=== PATIENT | female | born 1965 | race Caucasian/White ===

== ENCOUNTER 2021-03-15 08:34 | Outpatient (RCR) | payer BC | END 2021-03-21 | disposition home or self-care (01) | PROVIDERS: ATTEND Internal Medicine | DX: M41.9 Scoliosis, unspecified (principal) ==

== ENCOUNTER 2022-07-18 05:35 | Outpatient (CLI) | payer BC ==
[~2022-07-18] VITALS: Ht 157.5 cm; Wt 76.2 kg
[2022-07-20] MEDS ORDERED: MULT-593 PO (12:18)
[2022-07-20] MEDS ORDERED: VITA1TAB78 PO (12:18)
[2022-07-20] MEDS ORDERED: OMEG100032 PO (12:18)
[2022-07-20] MEDS ORDERED: ZINC50TA11 PO (12:18)
== END 2022-07-20 12:19 | disposition home or self-care (01) ==
LOC: PREOP 05:35
PROVIDERS: ATTEND Internal Medicine
DX: Z01.818 Encounter for other preprocedural examination (principal)

== ENCOUNTER 2022-07-27 07:53 | Day surgery (SDC) | payer BC ==
--- NOTE | 2022-07-17 07:14 | HISTORY AND PHYSICAL ---
DATE OF SERVICE: 07/27/2022 COLONOSCOPY HISTORY AND PHYSICAL HISTORY OF PRESENT ILLNESS: The patient is a 57-year-old white female seen for followup of hypertension and yearly wellness evaluation. She has not previously accomplished colonoscopy. She is deemed to be of average risk. She is not aware of any family history for colon cancer or colon polyps. She denies bright red blood per rectum, melena, change in bowel habit or abdominal pain. She reports that she is put on several pounds of weight over the holiday season, but plans on taking this back off again. SOCIAL HISTORY: She has no past smoking or alcohol intake history. FAMILY HISTORY: She reports no change in the family history. Mother of CVA at the age of 86, was a smoker. Father was a heavy smoker at the age of 80 and of a stroke. Has one brother living with COPD in his late 50s, heavy smoker. PHYSICAL EXAMINATION: GENERAL: Reveals a white female, appears to be in no acute distress. VITAL SIGNS: Weight was up 4.4 pounds, 168. Blood pressure 130/80. CHEST: Clear. CARDIOVASCULAR: Reveals regular rate and rhythm without murmur, S3, or S4. NECK: Revealed no JVD, adenopathy or bruits. EAR: Canals clear with normal TMs. ABDOMEN: Soft, supple without mass, organomegaly, or tenderness. EXTREMITIES: Reveal no cyanosis, clubbing or edema. SKIN: Evaluation revealed no suspicious nevi. ASSESSMENT AND PLAN: Stable wellness evaluation. Return in six months for followup of hypertension. She will be due for screening mammogram. The patient is being set up for screening colonoscopy. Prep instructions were given and questions answered after discussing rationale. We will see her back in 6 months for hypertension followup. Job ID: [id number] DocumentID: [id number] Dictated Date: 07/05/2022 11:35:13 Slip Operator Date: 07/05/2022 12:02:00 Dictated By: CONOR COOLEY MD [facility]
[~2022-07-27] VITALS: Ht 157 cm; Wt 76.2 kg
[~2022-07-27 07:53] MED LIST: MULT-593 PO; OMEG100032 PO; VITA1TAB78 PO; ZINC50TA11 PO
[2022-07-27] MEDS ORDERED: LACTATED RINGERS 1,000 ML IV STA (07:58)
[2022-07-27 08:06] VITALS: BP 183/106
[2022-07-27] MEDS ORDERED: PROPOFOL INJECTION 50 ML IV ONE (08:14)
--- NOTE | 2022-07-27 08:14 | Pre-Op Note & Conscious Sedat ---
Pre-Operative Progress Note Date H&P Reviewed: Jul 27, 2022 Time H&P Reviewed: 07:50 History & Physical: H&P Reviewed, Patient Examed, No changes noted Pre-Op Diagnosis: screening Conscious Sedation Pre-Proced ASA Score 2 For ASA 3 and 4: Consider anesthesia and medical clearance. Also, for patients with a history of failed moderate sedation consider anesthesia. Airway Lungs Heart ASA score ASA 1: a normal healthy patient ASA 2: a patient with a mild systemic disease (mid diabetes, controlled hypertension, obesity ASA 3: a patient with a severe systemic disease that limits activity (angina, COPD, prior Myocardial infarction) ASA 4: a patient with an incapacitating disease that is a constant threat to life (CHF, renal failure) ASA 5: a moribund patient not expected to survive 24 hrs. (ruptured aneurysm) ASA 6: a declared brain- patient whose organs are being harvested. For emergent operations, add the letter E after the classification Mallampati Classification Grade 1 Sedation Plan Analgesia, Amnesia, Plan communicated to team members, Discussed options with patient/fam, Discussed risks with patient/fam The patient is an appropriate candidate to undergo the planned procedure, sedation, and anesthesia. The patient immediately re-assessed prior to indication. CONOR COOLEY MD Jul 27, 2022 08:14
--- NOTE | 2022-07-27 08:49 | Progress Note-Post Operative ---
Post-Procedure Note Physician (s)/Creative Coordinator (s) Physician CONOR COOLEY MD Pre-Procedure Diagnosis Pre-Procedure Diagnosis: screening Post-Procedure Diagnosis Post-operative diagnosis: Prior to undergoing colonoscopy digital rectal evaluation was performed. Anal suture tone was normal and the perianal reflexes intact. No abnormalities noted on digital inspection of the anal canal or distal rectal vault. The colonoscope was then inserted into the rectum and under direct visualization advanced to the cecum. The cecum was identified by identification of the ileocecal valve and the cecal strap. Photographic documentation was obtained. A careful inspection was made as the colonoscope was withdrawn. Quality the prep was good. Findings: There are no evidence for internal or external hemorrhoids. Present the distal rectum was a 3 mm sessile adenomatous appearing polyp that was biopsied ablated and submitted for histopathology with no blood loss noted. The remainder to the rectum was unremarkable. Mild to moderate diverticular disease confined to the sigmoid colon was present without evidence for diverticulitis. No other sigmoid colonic abnormalities are appreciated. The descending colon and splenic flexure transverse colon hepatic flexure ascending colon and cecum were unremarkable. Assessment: 1 diminutive adenomatous appearing polyp was removed from the distal rectum via hot forceps with no subsequent blood loss. We will likely be advocating repeat surveillance colonoscopy in 5 years pending histopathology. Mild to moderate diverticular disease confined to the sigmoid colon was present without evidence of diverticulitis. No other maladies were appreciated under good prep conditions. CONOR COOLEY MD Jul 27, 2022 08:49
[2022-07-27 08:53] VITALS: BP 104/58
[2022-07-27 09:00] VITALS: BP 104/58
[2022-07-27 09:15] VITALS: BP 132/88
--- NOTE | 2022-07-27 09:45 | Anesthesia-General Post-Op ---
MAC Patient Condition Mental Status/LOC: Same as Preop Cardiovascular: Satisfactory Nausea/Vomiting: Absent Respiratory: Satisfactory Pain: Controlled Complications: Absent Post Op Complications Complications None Follow Up Care/Instructions Patient Instructions None needed. Anesthesiology Discharge Order Discharge Order Patient is doing well, no complaints, stable vital signs, no apparent adverse anesthesia problems. No complications reported per nursing. LAILA VILLALTA CRNA Jul 27, 2022 09:45
== END 2022-07-27 09:32 | disposition home or self-care (01) ==
LOC: ENDO 07:53
PROVIDERS: ATTEND Internal Medicine
DX: Z12.11 Encounter for screening for malignant neoplasm of colon (principal); D12.8 Benign neoplasm of rectum; K57.30 Diverticulosis of large intestine without perforation or abscess without bleeding; I10 Essential (primary) hypertension; Z28.310 Unvaccinated for COVID-19